=== PATIENT | male | born 1980 | race Caucasian/White ===

== ENCOUNTER 2016-12-31 18:28 | Emergency (ER) | payer BC ==
[2016-12-31 18:48] VITALS: BP 153/94
--- NOTE | 2016-12-31 20:17 | ERNOTE ---
Psychological HPI - General Chief Complaint: Psychiatric Problem Source: Reports: patient, family Exam Limitations: Reports: clinical condition - Immun/Allergies/Home Medications Allergies/Adverse Reactions: Allergies No Known Allergies Allergy (Unverified 12/31/16 18:48) Home Medications: HOME MEDICATIONS NK [No Home Medication] 06/13/15 [Last Taken Unknown] - History of Present Illness Narrative: states pt says things such as "I wont be here anymore" when he his stressed and she fears he is referring to suicide Pt states he has not said anything that was seriously connected to suicidal thoughts. Pt does not want to spend time to see a counselor, but is willing to allow a medical evaluation and then work on further follow up and eval on an outpatient basis Time Seen by Provider: 12/31/16 20:00 Arrived by: Reports: private car Onset/duration: Reports: gradual onset Intent: Reports: other - denies Situational Problems: Reports: work - "stress" Review of Systems - Review of Systems Constitutional: Present: fatigue - doesn't sleep well EYE: Present: no symptoms reported ENT: Present: no symptoms reported Respiratory: Present: cough - minor Cardiology: Absent: chest pain Gastrointestinal/Abdominal: Present: nausea, diarrhea - intermittent, abdominal pain - mild Genitourinary: Present: no symptoms reported Musculoskeletal: Present: muscle pain, muscle stiffness Skin: Present: no symptoms reported Neurological: Present: no symptoms reported Endocrine: Present: no symptoms reported Hematologic/Lymphatic: Present: no symptoms reported Psych: Present: depressed - pt does not want to admit depression but describes signs of depression - Patient's Past Medical History Patient History - Medical: No pertinent hx Patient History - Cardiac/Respiratory: Hypertension Patient History - Cancer: No Hx of Cancer Patient History - Surgical Procedures: No surgical history - Social History Living Situations: spouse Abuse History: No History of abuse Psych History: No pertinent hx Smoking Status: Never smoker Have you smoked in the past 12 months: No Alcohol Use: none Drug Use: none - Immunizations Immunizations Up to Date: Yes Hx Pneumococcal Vaccination: No History of Influenza Vaccine: No Physical Exam - Physical Exam General Appearance: Present: wd/wn, alert, no apparent distress Eye Exam: Normal inspection: bilateral, PERRL: bilateral, EOMI: bilateral Ears, Nose, Throat: Present: normal ENT inspection Neck: Present: normal inspection, nontender Respiratory: Present: no respiratory distress, normal breath sounds, lungs clear Cardiovascular/Chest: Present: regular rate, rhythm, no murmur, normal peripheral pulses Gastrointestinal/Abdominal: Present: normal bowel sounds, nontender, nondistended, soft Back Exam: Present: normal inspection, normal range of motion Extremity Exam: Present: normal inspection, normal range of motion, no edema Neurological Exam: Present: alert, oriented, other - somewhat flat affect Skin Exam: Present: normal color, warm/dry Lymphatic Exam: Present: no adenopathy ED Progress - Results and Orders Patient's Lab Results:: I have reviewed the patient's lab results. Results and Orders: Laboratory Tests 12/31/16 12/31/16 20:30 20:35 Sodium 143 H Potassium 3.4 Chloride 103 Carbon Dioxide 29.2 Anion Gap 14.2 H BUN 3 L Creatinine 0.80 Est GFR (Non-Af Amer) 115 D BUN/Creatinine Ratio 3.8 L Random Glucose 106 Calcium 8.8 Total Bilirubin 0.5 AST 175 H ALT 146 H Alkaline Phosphatase 83 Total Protein 7.8 Albumin 4.0 TSH 3.240 Urine Color Yellow Urine Appearance Clear Urine pH 6.5 Ur Specific [place] <=1.005 Urine Protein Negative Urine Glucose (UA) Negative Urine Ketones Negative Urine Blood Negative Urine Nitrate Negative Urine Bilirubin Negative Urine Urobilinogen Normal Ur Leukocyte Esterase Negative Urine RBC None seen Urine WBC None seen Ur Epithelial Cells None seen Urine Bacteria 1+ H Urine Culture Comments No culture indicated Salicylates Less than 2.8 L Acetaminophen Less than 0.2 L Ethyl Alcohol 210.0 H - Vital Signs Patient's Vital Signs:: I have reviewed the patient's vital signs. Vital Signs: Vital Signs 12/31/16 18:39 Temperature 37.2 C Pulse Rate 75 Respiratory 16 Rate Blood Pressure 153/94 O2 Sat by Pulse 97 Oximetry - Progress/Reassessment Chief Complaint: Psychiatric Problem Progress Note-Subjective: Spoke with patient and about alcohol consumption and its deleterious effects on the liver. Suggested that if he drinks daily that he should reduce his consumption over a couple of weeks and not stop all at once. I mentioned acetaminophen as well and pt states he never takes that. Encouraged him to find a PCP and continue evaluation of his liver enzyme elevation. 01/01/17 07:09 Departure Clinical Impression: Elevated liver enzymes - Departure Disposition: Home Follow Up Needed Condition: Good Instructions: Alcohol Use Disorder, Alcoholic Liver Disease Additional Instructions: find a primary care physician and begin further evaluation of your liver. Reduce your alcohol intake slowly if you drink regularly and then avoid alcohol completely
--- OUTSIDE RECORDS SUMMARY | 2016-12-31 20:25 | XMS REPORT | Continuity of Care Document ---
:1980 Author Organization [facility] ([facility]) Address [place] [address] Phone [phone] Care Team Providers Name Role Phone Unavailable Primary Care Provider Unavailable Source Comments This disclosure is being made pursuant to the Care Everywhere program, applicable federal and state laws, and may not contain all informaitonavailable regarding this patient.[facility] ([facility]) Active Allergies and Adverse Reactions Not on File Current Medications Not on file Active Problems Not on file Social History Tobacco Use Types Packs/Day Years Used Date Never Assessed Plan of Care Health Maintenance Due Date Last Done Comments Hepatitis B Vaccine (1 of 3 - Primary Series) 1980 Tdap Vaccine 1989 Lipid Disorder Screening 1996 MMR Vaccine 1996 Td Vaccine 1996 Influenza Vaccine: Seasonal (#1) 03/24/2016 Results from Last 3 Months Not on file
[2016-12-31 20:34] LABS: Hematocrit 43.4 % (42.0-52.0); Hemoglobin 15.4 gm/dL (13.5-18.0); Mean Cell Volume 100.9 fl (78-100); Mean Corpuscular Hemoglobin 35.8 pg (27-31); Mean Corpuscular Hgb Conc 35.5 g/dl (32-36); Mean Platelet Volume 9.2 fl (6.0-9.5); Neutrophil # 4.6 K/mm3 (1.3-6.0); Neutrophil % 70.3 % (42-75.0); Platelet Count 218 K/mm3 (150-450); Red Cell Distribution Width 14.2 % (11.5-14.0); White Blood Count 6.6 K/mm3 (4.0-10.5)
[2016-12-31 20:49] LABS: Urine Bilirubin Negative (NEGATIVE); Urine Blood Negative /ul (NEGATIVE); Urine Ketone Negative (NEGATIVE); Urine Nitrite Negative (NEGATIVE); Urine Protein Negative (NEGATIVE); Urine Specific Gravity <=1.005 SP.GR. (1.005-1.030); Urine Urobilinogen Normal (NORMAL); Urine pH 6.5 pH (5.0-7.0)
[2016-12-31 20:57] LABS: ALT 146 U/L (19-67); AST 175 U/L (0-48); Alkaline Phosphatase * 83 U/L (50-170); Anion Gap 14.2 mmol/L (6.8-13.8); BUN/Creatinine Ratio 3.8 (9.0-21.6); Bilirubin, Total 0.5 mg/dL (0.0-1.1); Blood Urea Nitrogen 3 mg/dL (6-23); Ca. Corrected For Albumin 8.5 mg/dL (8.4-10.2); Calcium * 8.8 mg/dL (7.9-10.9); Carbon Dioxide 29.2 mmol/L (24-32.6); Chloride 103 mmol/L (97-106); Glucose * 106 mg/dL (70-110); Potassium 3.4 mmol/L (3.4-4.6); Salicylate Less than 2.8 mg/dL (2.8-20.0); Sodium 143 mmol/L (132-142); Total Protein 7.8 gm/dL (6.2-8.2)
[2016-12-31 21:03] LABS: Cocaine Ur Negative (NEGATIVE); Urine Appearance Clear; Urine Barbiturate Negative (NEGATIVE); Urine Benzodiazepines Negative (NEGATIVE); Urine Color Yellow; Urine Opiates Negative (NEGATIVE); Urine PCP Negative (NEGATIVE); Urine RBC None Seen /hpf (0-5); Urine THC Negative (NEGATIVE); Urine WBC None Seen /hpf (0-5)
[2016-12-31 21:04] LABS: Urine Bacteria 1+
== END 2016-12-31 21:37 | disposition home or self-care (01) ==
LOC: ER 18:28
DX: R94.5 Abnormal results of liver function studies (principal)
CPT/HCPCS: 36415; 80053; 80307; 81001; 84443; 85025; 99282; G0480; G0481